=== PATIENT | male | born 1965 | race Caucasian/White ===

== ENCOUNTER 2020-04-13 10:56 | Emergency (ER) | payer MEDICAID, SELFPAY ==
[2020-04-13 10:57] VITALS: BP 133/76; PULSE 70; RESP 18; TEMP 36.8; O2SAT 100; BMI 34.7
--- NOTE | 2020-04-13 11:19 | ED.VIS.GEN ---
History of Present Illness Chief Complaint: Abd Pain Informant: Patient Narrative: 54-year-old male presenting with epigastric and right upper quadrant pain. This has been going on for about a week. Does not have a gallbladder but does state that he had a stent placed by Dr. Claire and his celiac artery in September of last year. He was concerned that this may be the problem. He states that his surgeon no longer takes his insurance and was directed to the emergency room. Patient has had slight decrease in bowel movements but not significant. Is making normal urine. He is able to eat and drink. He states that his pain is related to eating most of the time. She will get pain in the epigastrium and right upper quadrant for 20 minutes after eating. Prior similar symptoms: Yes Recent Illness/Hospitalization: Yes Past Medical History - Allergies and Home Meds Allergies/Adverse Reactions: Allergies latex Allergy (Verified 04/13/20 10:57) Rash Primary Care Physician: NOT,DEFINED [NON-STAFF] - Prior records reviewed: Yes Past Medical History: - - GERD Surgical History: - - Electrocautery stent Smoking Status: Current every day smoker Review of Systems General: Denies: Chills, Fever, Sweats Eyes: Denies: Visual changes - bilaterally, Diplopia ENT: Denies: Rhinorrhea, Sore throat Cardiovascular: Denies: Chest pain, Palpitations Respiratory: Denies: Dyspnea, Cough, Dyspnea on exertion Gastrointestinal: Reports: Abdominal pain, Nausea, Constipation. Denies: Vomiting, Diarrhea Genitourinary: Denies: Dysuria, Hematuria Musculoskeletal: Denies: Myalgias, Arthralgias Skin: Denies: Rash, Abscess Neurological: Denies: Headache, Weakness, Parasthesia Psych: Denies: Depression, Anxiety Physical Exam Vital Signs/Narrative: Vital Signs Temp Pulse Resp BP Pulse Ox 04/13/20 10:57 98.2 F 70 18 133/76 H 100 Inital Vital Signs reviewed: Yes General: Obese, No Acute Distress Head: Normocephalic, Atraumatic Eyes: Perrl, EOMI ENT: Moist mucous membranes, No rhinorrhea Cardiovascular: Regular rate, Regular rhythm Respiratory: No distress, CTA bilaterally Abdomen: Soft, Tender - Mild tenderness in the right upper quadrant. Negative Muñoz sign. Extremities: Nontender, No edema Skin: Normal color, No rash Neurological: Alert, Oriented x3, Cranial nerves II-XII grossly intact Psychological: Normal affect, Normal Mood Diagnostic/Tx/Re-eval Clinical Impression(s) from Imaging Studies Abdomen CTA 04/13/20 11:23 IMPRESSION: Vascular stent at the origin of the celiac artery. Diffuse fatty infiltration of the liver. Electronically Signed: Lisandro Case MD at 12:17 EST , Service support , Laboratory Data 04/13/20 04/13/20 11:17 11:17 WBC 8.9 RBC 5.63 Hgb 16.2 Hct 47.6 MCV 84.5 MCH 28.8 MCHC 34.0 RDW Std Deviation 42.1 RDW Coeff of Nadia 13.6 Plt Count 229 MPV 10.2 Immature Gran % (Auto) 0.300 Neut % (Auto) 33.9 L Lymph % (Auto) 49.7 H [place] % (Auto) 8.3 Eos % (Auto) 7.1 H Baso % (Auto) 0.7 Absolute Neuts (auto) 3.0 Absolute Lymphs (auto) 4.44 Nucleated RBC % 0 Sodium 137 Potassium 3.9 Chloride 108 H Carbon Dioxide 26.0 Anion Gap 3 L BUN 16 Creatinine 0.81 Estim Creat Clear Calc 98.61 Est GFR (MDRD) Af Amer 129 Est GFR (MDRD) Non-Af 106 BUN/Creatinine Ratio 19.9 Glucose 99 Calcium 8.8 Total Bilirubin 0.50 AST 42 H ALT 75 H Alkaline Phosphatase 65 Total Protein 7.6 Albumin 3.6 Globulin 4.0 Albumin/Globulin Ratio 0.9 Lipase 96 - Medical Decision Making 54-year-old male presenting with abdominal pain and has concerned that it could be is recently displaced stent in his celiac artery. Patient had blood work which was within normal limits. CTA of the abdomen and pelvis shows that stent is patent. There are no identified other abnormalities. Since patient is also having concern for light constipation he is counseled to start a stool softener. He is given return precautions. Patient stable for discharge. Impression: 1. Abdominal pain ED Disposition - Plan for ED Patient: Disposition: Home or Assisted Living Instructions: Abdominal Pain, ED Constipation (Adult) Referrals: NOT,DEFINED [NON-STAFF] -
--- NOTE | 2020-04-13 11:23 | CT_ITS ---
STUDY: CTA OF THE ABDOMINAL AORTA REASON FOR EXAM: Male, 54 years old. RUQ PAIN X 1 WEEK. STENT IN CELIAC SINCE 2019 RADIATION DOSAGE (If Supplied By Facility): CTDIvol = ( 31.63 ) mGy, DLP = ( 790.43 ) mGycm TECHNIQUE: Axial CT angiography multi-detector data acquisition was obtained from the dome of the liver to the iliac crests following intravenous administration of IV 100mL Isovue-370. Axial images and MIP images were reconstructed from the axial data set. Post-processing of the angiographic images was performed, with multiplanar reformation and 3D reconstruction. Individualized dose optimization techniques were used for this CT. TECHNICAL QUALITY: Good COMPARISON: None. Descriptors of Narrowing: None (0%) Mild (< 50%) Moderate (50-70%) Severe (70-90%) Subtotal/Total Occlusion (90-100%) Non-Evaluable (technically non-diagnostic FINDINGS: Mild increased markings at the right lung base suggestive of atelectasis. Diffuse fatty infiltration of the liver. Mild hepatomegaly. Status post cholecystectomy. Abdominal aorta: Minimal atherosclerotic plaque. Celiac and superior mesenteric arteries: A vascular stent is seen at the origin of the celiac artery. Inferior mesenteric artery: No demonstrated narrowing. Right renal artery(arteries): No demonstrated narrowing. Left renal artery(arteries): No demonstrated narrowing. Right common iliac artery: No demonstrated narrowing. Right external iliac artery: No demonstrated narrowing. Right internal iliac artery: No demonstrated narrowing. Left common iliac artery: No demonstrated narrowing. Left external iliac artery: No demonstrated narrowing. Left internal iliac artery: No demonstrated narrowing. CT/CTA Abdomen W/WO Contrast IMPRESSION: Vascular stent at the origin of the celiac artery. Diffuse fatty infiltration of the liver. Electronically Signed: Lisandro Case MD at 12:17 EST , Service support ,
[2020-04-13 11:39] LABS: Absolute Lymphocyte Count 4.44 X10^3/uL (0.83-4.51); Basophil# 0.06 X10^3/uL; Basophil% 0.7 % (0-1); Eosinophil# 0.63 X10^3/uL; Eosinophils% 7.1 % (0-5); Hematocrit 47.6 % (40-54); Hemoglobin 16.2 g/dL (13.0-16.5); Lymphocyte # 4.44 X10^3/ul (4.0); Lymphocyte % 49.7 % (19-41); Mean Corpuscular Hgb 28.8 pg (27.0-32.0); Mean Corpuscular Volume 84.5 fL (80-94); Mean Platelet Vol. 10.2 fl (6.2-12.0); Monocyte# 0.74 X10^3/uL; Monocyte% 8.3 % (0-10); NRBC Flagged by Analyzer 0 % (0-5); Neutrophil # 3.03 X10^3/uL (2.7-7.7); Neutrophil % 33.9 % (47-70); Platelet Count 229 K/mm3 (150-450); RBC Distribution Width CV 13.6 % (11.6-14.6); RBC Distribution Width SD 42.1 fl (35.1-43.9); Red Blood Count 5.63 M/mm3 (4.6-6.2); White Blood Count 8.9 K/mm3 (4.4-11.0)
[2020-04-13 11:50] LABS: ALB/GLOB Ratio 0.9 RATIO (0.9-2.4); AST(SGOT) 42 U/L (15-37); Alanine Aminotransfer ALT/SGPT 75 U/L (16-61); Albumin, Serum 3.6 g/dL (3.2-5.0); Alkaline Phosphatase 65 U/L (45-117); Anion Gap 3 (5-15); BUN 16 mg/dL (7-18); BUN/Creat Ratio 19.9 RATIO (10-20); Calcium,Total 8.8 mg/dL (8.5-10.1); Chloride 108 mmol/L (98-107); Creatinine, Serum 0.81 mg/dL (0.70-1.30); EST Glomerular Filtration Rate 106 mL/min (>60); Est Glom Filt Rate - Afr Amer 129 mL/min (>60); Estimated Creatinine Clearance 98.61 ml/min; Glucose 99 mg/dL (74-106); Lipase 96 U/L (73-393); Potassium 3.9 mmol/L (3.5-5.1); Protein, Total 7.6 g/dL (6.4-8.2); Sodium Level 137 mmol/L (136-145)
== END 2020-04-13 13:25 | disposition home or self-care (01) ==
PROVIDERS: Emergency Provider Student in an Organized Health Care Education/Training Program; PCP Family Medicine
DX: R10.11 Right upper quadrant pain (principal); F17.200 Nicotine dependence, unspecified, uncomplicated; Z79.82 Long term (current) use of aspirin
CPT/HCPCS: 74175; 80053; 83690; 85025; 99283; J7040; Q9967; A4216

== ENCOUNTER 2022-04-24 22:53 | Emergency (ER) | payer MEDICAID, SELFPAY ==
[2022-04-24 22:54] VITALS: BP 139/71; PULSE 64; RESP 15; TEMP 36.3; O2SAT 96; BMI 32.8
--- NOTE | 2022-04-24 23:13 | RAD_ITS ---
STUDY: X-RAY - UNILATERAL RIBS ( RIGHT ) WITH CHEST REASON FOR EXAM: Male, 56 years old. pain TECHNIQUE - RIBS: 4 view(s) of the ribs. TECHNIQUE - CHEST: Single frontal view of the chest. COMPARISON: June 25, 2012 FINDINGS - RIBS: Fractures of the fourth and fifth ribs posteriorly on the right. FINDINGS - CHEST: Right hilar sutures. Bilateral interstitial infiltrates. No pneumothorax. Small right effusion. Normal size heart. Normal mediastinum and brina. Normal visualized pulmonary arteries. Normal visualized aortic arch and descending thoracic aorta. Normal visualized thoracic spine. Normal visualized ribs, clavicles, and shoulders. There is no demonstrated abnormality of the visualized soft tissue structures of the upper abdomen. RAD/Ribs Uni Min 3V w/PA Chest IMPRESSION: RIBS: Fourth and fifth rib fractures on the right posteriorly. CHEST: No pneumothorax. Right lower lobe infiltrate and small effusion. Electronically Signed: Tyler Raya MD at 23:51 EST ,
--- NOTE | 2022-04-24 23:13 | EX.ED.DYSGE1 ---
HPI History of Present Illness Chief Complaint: Other, Pain/Inj Detail of Chief Complaint: Chest wall pain Informant: patient Onset/Context/Timing Onset: Days (2 days) Context: Gradual Onset Timing: Waxes and wanes Current Severity: Moderate Maximum Severity: Moderate Narrative Narrative: Patient presents secondary to right-sided chest wall pain. 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 Patient states 2 days ago he was coughing and sneezed hard and now has pain to the right ribs. He does not feel short of breath. He states he had a few leftover oxycodone that were helping initially, but he ran out 2 nights ago. He tried taking Tylenol without significant improvement. [facility] Medical History HTN (hypertension) Hyperlipidemia Home Medications aspirin 81 mg chewable tablet 81 mg PO DAILY@0800 04/13/20 [History Last Taken Unknown] clopidogrel 75 mg tablet 75 mg PO DAILY 04/13/20 [History Last Taken Unknown] fenofibrate nanocrystallized 145 mg tablet 145 mg PO DAILY 04/13/20 [History Last Taken Unknown] lisinopril 10 mg-hydrochlorothiazide 12.5 mg tablet 1 ea PO DAILY 04/13/20 [History Last Taken Unknown] metoprolol tartrate 25 mg tablet 25 mg PO DAILY 04/13/20 [History Last Taken Unknown] rosuvastatin 10 mg tablet 10 mg PO QHS 04/13/20 [History Last Taken Unknown] oxycodone 5 mg tablet 5 mg PO Q8H PRN pain 3 days #12 tabs 04/24/22 [Rx Last Taken Unknown] Allergy/AdvReac Type Severity Reaction Status Date / Time latex Allergy Rash Verified 04/24/22 22:58 adhesive tape AdvReac Rash Verified 04/24/22 22:58 esomeprazole [From Nexium] AdvReac Rash Verified 04/24/22 22:58 Surgical History S/P partial lobectomy of lung Social History Smoking Status: Current every day smoker tobacco type: cigarettes ROS ROS ED Constitutional Constitutional ED: Denies chills or fever(s) Eyes Eyes: Denies change in vision or discharge from eye(s) ENT ENT ED: Denies discharge from eye(s), rhinorrhea or sore throat Cardiovascular Cardiovascular: Reports chest pain; Denies palpitations Respiratory/Chest Respiratory/Chest: Denies cough or dyspnea Gastrointestinal Gastrointestinal: Denies abdominal pain, nausea or vomiting Genitourinary Genitourinary ED: Denies dysuria Musculoskeletal Musculoskeletal: Denies back pain or extremity pain Integumentary Denies Abrasions or rash Neurologic Neurologic: Denies headache(s) or weakness Allergic/Immunologic Allergic/Immunologic ED: Denies lip swelling or urticaria EXAM Physical Exam Const Vital Signs: 04/24/22 22:54 04/24/22 23:07 04/24/22 23:46 Temperature 97.4 F L Temperature Source Temporal Pulse Rate 64 45 L Respiratory Rate 15 16 Respiratory Effort Normal Non-Labored Respiratory Pattern Normal Blood Pressure 139/71 H 122/56 H Blood Pressure Mean 93 78 Pulse Ox 96 97 Oxygen Delivery Method Room Air Room Air Positive well nourished and well developed General Appearance ED: well developed HEENT Reports normocephalic and head/scalp atraumatic Eyes PERRL and EOMs intact bilaterally Neck supple Chest Wall Chest Narrative: Healed scars to the right lateral chest wall. Reproducible tenderness along the anterior lateral chest wall. No overlying skin changes. No crepitus. Resp normal respiratory effort and clear to auscultation bilaterally Cardio regular rate and regular rhythm GI normal to inspection, nondistended, normoactive bowel sounds Palpation: soft Extremity normal to inspection Neuro oriented x3 and no sensory deficits noted Sensorium / Orientation: alert Motor Exam: strength 5/5 throughout Psych mental status grossly normal Skin no rashes or lesions noted MDM MDM MDM Narrative Medical decision making narrative: Patient is given a dose of oxycodone for pain control. Rib series with chest x-ray obtained to evaluate for lung and rib pathology. Radiography Diagnostic Testing: Clinical Impression(s) from Imaging Studies Ribs w/Chest X-Ray 04/24/22 23:13 IMPRESSION: RIBS: Fourth and fifth rib fractures on the right posteriorly. CHEST: No pneumothorax. Right lower lobe infiltrate and small effusion. Electronically Signed: Tyler Raya MD at 23:51 EST Reading Location ID and State: [facility] / [place] , Service support , Treatment and Re-Evaluation Narrative: Rib series with chest x-ray per my interpretation shows some postoperative right-sided rib fractures and postoperative changes in the right lung. Radiology interpretation is reviewed. They feel he may have an infiltrate and small effusion on the right. Patient has had no significant cough or fever. He has reproducible chest wall pain. Nursing staff did note that the patient's heart rate would drop down into the 30s periodically. He appears to be sinus bradycardia. I spoke with him about this. He states he recently had a stress test and at that time they noted his heart rate would drop as low as 29. I was able to review records and [facility] and he did have a nuclear stress test on March 26 of this year. There is no evidence of inducible ischemia. His maximum heart rate during his stress test was only 67. Patient is asymptomatic with this and will follow-up with his primary care physician. I will write him a short course of oxycodone to help control his chest wall pain. Return instructions are given. Discharge Plan Triage Chief Complaint: Other, Pain/Inj ED Provider: Yady Wasserman Dx/Rx/DC Orders Clinical Impression: Chest wall pain Instructions: ED Chest Pain, Noncardiac Prescriptions: New oxycodone 5 mg tablet 5 mg PO Q8H PRN (Reason: pain) 3 Days Qty: 12 0RF No Action clopidogrel 75 MG tablet 75 mg PO DAILY aspirin 81 MG tablet,chewable 81 mg PO DAILY@0800 lisinopril-hydrochlorothiazide 1 EACH tablet 1 ea PO DAILY rosuvastatin 10 MG tablet 10 mg PO QHS metoprolol tartrate 25 MG tablet 25 mg PO DAILY fenofibrate nanocrystallized 145 MG tablet 145 mg PO DAILY Primary Care Provider: Care Physician,No Primary Referrals: Sabrina Doss MD [Med Staff - Retail Analytics Manager] - 1-2 Weeks Care Physician,No Primary [Primary Care Provider] - Disposition Disposition: Home, Self Care
[2022-04-24] MEDS: oxyCODONE 5 MG Tablet PO (23:28)
[2022-04-24 23:46] VITALS: BP 122/56; PULSE 45; RESP 16; O2SAT 97
[2022-04-25 00:04] VITALS: BP 130/68; PULSE 57; RESP 13; O2SAT 97
== END 2022-04-25 00:13 | disposition home or self-care (01) ==
PROVIDERS: Emergency Provider Emergency Medicine; Visit Provider Emergency Medicine
DX: R07.89 Other chest pain (principal); F17.210 Nicotine dependence, cigarettes, uncomplicated
CPT/HCPCS: 71101; 99282

== ENCOUNTER 2022-05-18 06:38 | Emergency (ER) | payer MEDICAID, SELFPAY ==
[2022-05-18 06:39] VITALS: BP 151/77; PULSE 67; RESP 18; TEMP 36.4; O2SAT 95; BMI 33.1
--- NOTE | 2022-05-18 07:06 | EDS_ITS ---
HPI History of Present Illness Chief Complaint: Cough Detail of Chief Complaint: Cough Narrative Narrative: Patient presents to the emergency department with complaint of a cough that started initially 2 weeks ago. Patient also complains of some right chest disco mfort. Patient complains of some productive sputum that is white and chunky at times. He has had no fever. He denies sick contacts. Patient tells me he had a partial lobectomy in March of this year to remove 2 nodules. He denies recent travel. No history of PE or DVT. He does describe some mild exertional dyspnea. Patient has not had the COVID-vaccine. Patient states that he was seen in the emergency department about a month ago for right-sided chest pain due to his surgery and his ribs being cut. [facility] Medical History HTN (hypertension) Hyperlipidemia Home Medications aspirin 81 mg chewable tablet 81 mg PO DAILY@0800 04/13/20 [History Last Taken Unknown] clopidogrel 75 mg tablet 75 mg PO DAILY 04/13/20 [History Last Taken Unknown] fenofibrate nanocrystallized 145 mg tablet 145 mg PO DAILY 04/13/20 [History Last Taken Unknown] lisinopril 10 mg-hydrochlorothiazide 12.5 mg tablet 1 ea PO DAILY 04/13/20 [History Last Taken Unknown] metoprolol tartrate 25 mg tablet 25 mg PO DAILY 04/13/20 [History Last Taken Unknown] rosuvastatin 10 mg tablet 10 mg PO QHS 04/13/20 [History Last Taken Unknown] oxycodone 5 mg tablet 5 mg PO Q8H PRN pain 3 days #12 tabs 04/24/22 [Rx Last Taken Unknown] benzonatate 200 mg capsule 200 mg PO TID PRN cough #20 caps 05/18/22 [Rx Last Taken Unknown] doxycycline monohydrate 100 mg capsule 100 mg PO BID #20 CAPSULES 05/18/22 [Rx Last Taken Unknown] Allergy/AdvReac Type Severity Reaction Status Date / Time latex Allergy Rash Verified 05/18/22 06:43 adhesive tape AdvReac Rash Verified 05/18/22 06:43 esomeprazole [From Nexium] AdvReac Rash Verified 05/18/22 06:43 Surgical History S/P partial lobectomy of lung Social History Smoking Status: Current every day smoker tobacco type: cigarettes ROS ROS ED Review of Systems ROS Unobtainable: other Constitutional Constitutional ED: Reports lethargy; Denies chills, fever(s), sweats or weight loss Eyes Eyes: Denies blurry vision, change in vision or diplopia ENT ENT ED: Denies rhinorrhea or sore throat Cardiovascular Cardiovascular: Reports chest pain and racing heartbeat; Denies orthopnea Respiratory/Chest Respiratory/Chest: Reports cough, dyspnea and dyspnea on exertion; Denies orthopnea or sputum Gastrointestinal Gastrointestinal: Denies abdominal pain, diarrhea, nausea or vomiting Genitourinary Genitourinary ED: Denies dysuria, hematuria or urinary frequency Musculoskeletal Musculoskeletal: Denies arthralgias, back pain, myalgias or neck pain Integumentary Denies abscess, Abrasions or rash Neurologic Neurologic: Denies headache(s) or weakness Psychiatric Psychiatric: Denies anxiety, depression or suicidal thoughts Endocrine Endocrinology: Denies polydipsia, polyphagia or polyuria Hematologic/Lymphatic Hematologic/Lymphatic: Denies easy bleeding, easy bruising or lymphadenopathy Allergic/Immunologic Allergic/Immunologic ED: Denies mouth swelling, tongue swelling or urticaria EXAM Physical Exam Const Vital Signs: 05/18/22 06:39 05/18/22 06:39 05/18/22 06:39 Temperature 97.6 F L 97.6 F L Temperature Source Oral Oral Pulse Rate 67 67 Respiratory Rate 18 18 Respiratory Effort Normal Respiratory Depth Normal Respiratory Pattern Normal Blood Pressure 151/77 H 151/77 H Blood Pressure Mean 101 101 Pulse Ox 95 95 Oxygen Delivery Method Room Air Room Air Room Air 05/18/22 09:15 05/18/22 09:15 Temperature Temperature Source Pulse Rate 65 Respiratory Rate 16 Respiratory Effort Respiratory Depth Respiratory Pattern Blood Pressure Blood Pressure Mean Pulse Ox 96 Oxygen Delivery Method Room Air Positive well nourished and well developed General Appearance ED: well developed and NAD HEENT Reports TM's clear and moist mucous membranes normocephalic and atraumatic; Negative for trauma or tenderness Tympanic Membrane ED: Yes TM's clear Eyes PERRL and EOMs intact bilaterally General Eye ED: Negative for pale conjunctiva or scleral icterus Neck no lymphadenopathy, supple and no JVD General: Negative for tenderness Chest Wall inspection of chest normal and palpation of chest normal Chest: Negative for tenderness Resp normal respiratory effort and clear to auscultation bilaterally Effort and Inspection: Negative for respiratory distress or pain with movement Auscultation: Negative for rhonchi, wheezes or diminished lung sounds Cardio regular rate, regular rhythm, S1 normal heart sound, S2 normal heart sound and no murmurs Peripheral Pulses: pulses 2+ throughout GI normal to inspection, nondistended, normoactive bowel sounds, soft to palpation, non-tender, non-distended and no masses Back/Spine no CVA tenderness and no thoracic nor lumbar tenderness Extremity normal to inspection General Extremety ED: Negative for edema General Extremity: Negative for edema Neuro oriented x3, CN's II-XII intact bilaterally, no sensory deficits noted and gait normal Sensorium / Orientation: awake, alert, oriented to person, oriented to place and oriented to time Motor Exam: strength 5/5 throughout and strength abnormal Psych mental status grossly normal Skin no rashes or lesions noted and no wounds MDM MDM MDM Narrative Medical decision making narrative: IV line sepsis on arrival. Patient had a CBC with differential that showed a normal white count and normal H&H. Chemistries were unremarkable. D-dimer was elevated at 0.55. CTA of the chest obtained was negative for PE or dissection. Patient had postsurgical changes noted in the right lung with some mild bilateral increased markings which may be inflammatory or infiltrate. Given the patient's had continued cough for 2 weeks we will cover with doxycycline. Patient has an appointment with his surgeon in 5 days. Patient also will be given a prescription for Tessalon Perles. Lab Data Attestation: I reviewed the patient's lab results. Labs: Laboratory Results - last 24 hr 05/18/22 05/18/22 05/18/22 07:47 07:47 07:47 WBC 10.1 RBC 5.35 Hgb 15.2 Hct 45.9 MCV 85.8 MCH 28.4 MCHC 33.1 RDW Std Deviation 41.1 RDW Coeff of Nadia 13.2 Plt Count 335 MPV 10.1 Immature Gran % (Auto) 0.400 Neut % (Auto) 48.8 Lymph % (Auto) 36.1 [place] % (Auto) 8.8 Eos % (Auto) 5.3 H Baso % (Auto) 0.6 Absolute Neuts (auto) 5.0 Absolute Lymphs (auto) 3.66 Nucleated RBC % 0 D-Dimer Quant (PE/DVT) 0.55 H* Sodium 138 Potassium 4.0 Chloride 105 Carbon Dioxide 28.0 Anion Gap 5 BUN 16 Creatinine 0.84 Estim Creat Clear Calc 92.90 Est GFR (MDRD) Af Amer 122 Est GFR (MDRD) Non-Af 100 BUN/Creatinine Ratio 19.0 Glucose 124 H Calcium 9.8 Radiography Diagnostic Testing: Clinical Impression(s) from Imaging Studies Chest CTA 05/18/22 08:29 IMPRESSION: CTA chest examination, without a demonstrated pulmonary embolism or arterial dissection. Postoperative change. Bilateral interstitial edema or infiltrates. Electronically Signed: Bob Kendall MD at 9:49 EST , Differential Diagnosis Chest pain/SOB: pulmonary embolism, pneumothorax, pneumonia and COPD Treatment and Re-Evaluation :: Patient received a DuoNeb aerosol however clinically he did not feel any different. There was no significant wheezing afterwards. Discharge Plan Triage Chief Complaint: Cough ED Provider: Roni Hanna Dx/Rx/DC Orders Clinical Impression: Acute upper respiratory infection, Dyspnea Instructions: ED Upper Resp Infec Abx Tx, ED Dyspnea Prescriptions: New doxycycline monohydrate 100 mg capsule 100 mg PO BID Qty: 20 0RF benzonatate 200 mg capsule 200 mg PO TID PRN (Reason: cough) Qty: 20 0RF No Action clopidogrel 75 MG tablet 75 mg PO DAILY aspirin 81 MG tablet,chewable 81 mg PO DAILY@0800 lisinopril-hydrochlorothiazide 1 EACH tablet 1 ea PO DAILY rosuvastatin 10 MG tablet 10 mg PO QHS metoprolol tartrate 25 MG tablet 25 mg PO DAILY fenofibrate nanocrystallized 145 MG tablet 145 mg PO DAILY oxycodone 5 mg tablet 5 mg PO Q8H PRN (Reason: pain) 3 Days Qty: 12 0RF Primary Care Provider: ROC ANDERSON Referrals: ROC ANDERSON [Other] Activity Restrictions/Additional Instructions: Keep your ointment with surgeon in 5 days. Disposition Disposition: Home, Self Care
[2022-05-18 08:02] LABS: Absolute Lymphocyte Count 3.66 X10^3/uL (0.83-4.51); Basophil# 0.06 X10^3/uL; Basophil% 0.6 % (0-1); Eosinophil# 0.54 X10^3/uL; Eosinophils% 5.3 % (0-5); Hematocrit 45.9 % (40-54); Hemoglobin 15.2 g/dL (13.0-16.5); Lymphocyte # 3.66 X10^3/ul (0.83-4.51); Lymphocyte % 36.1 % (19-41); Mean Corp Hgb Conc 33.1 g/dL (32-36); Mean Corpuscular Hgb 28.4 pg (27.0-32.0); Mean Corpuscular Volume 85.8 fL (80-94); Mean Platelet Vol. 10.1 fl (6.2-12.0); Monocyte# 0.89 X10^3/uL; Monocyte% 8.8 % (0-10); NRBC Flagged by Analyzer 0 % (0-5); Neutrophil # 4.95 X10^3/uL (2.7-7.7); Neutrophil % 48.8 % (47-70); Platelet Count 335 K/mm3 (150-450); RBC Distribution Width CV 13.2 % (11.6-14.6); RBC Distribution Width SD 41.1 fl (35.1-43.9); Red Blood Count 5.35 M/mm3 (4.6-6.2); White Blood Count 10.1 K/mm3 (4.4-11.0)
[2022-05-18 08:25] LABS: D-Dimer Quantitative (DVT/PE) 0.55 FEU/ug/m (0.27-0.49)
--- NOTE | 2022-05-18 08:29 | CT_ITS ---
STUDY: CTA CHEST REASON FOR EXAM: Male, 56 years old. Chest pain, elevated d-dimer, cough x 2 weeks RADIATION DOSAGE (If Supplied By Facility): CTDIvol = ( 13.15 ) mGy, DLP = ( 474.68 ) mGycm TECHNIQUE: The examination was performed with the intravenous administration of IV 100mL Isovue-370. Post-processing of the angiographic images was performed, with multiplanar reformation and 3D reconstruction. Individualized dose optimization techniques were used for this CT. COMPARISON: Chest x-ray April 24, 2022 FINDINGS: Normal enhancement of the main pulmonary artery and right and left pulmonary arteries. Normal enhancement of the bilateral peripheral pulmonary arteries. There is no demonstrated pulmonary embolism. There is atherosclerotic calcification of the aortic arch. There is no demonstrated aortic dissection. Normal heart and pericardium. Normal mediastinum. Normal hilar regions. Normal visualized trachea and bronchi. The lungs are well expanded. There is postoperative change in the right midlung and hilar regions. There is adjacent scarring and architectural distortion. There are mild to moderate interstitial septal and groundglass increased opacities of the lungs. Normal pleura. Normal chest wall structures. There are degenerative changes of thoracic spine. There is postoperative change of the right posterior fifth rib. There are cholecystectomy clips. There is stent in the origin of the celiac artery. CT/CTA Chest W/WO Contrast IMPRESSION: CTA chest examination, without a demonstrated pulmonary embolism or arterial dissection. Postoperative change. Bilateral interstitial edema or infiltrates. Electronically Signed: Bob Kendall MD at 9:49 EST ,
[2022-05-18 08:40] LABS: Anion Gap 5 (5-15); BUN 16 mg/dL (7-18); Calcium,Total 9.8 mg/dL (8.5-10.1); Chloride 105 mmol/L (98-107); Creatinine, Serum 0.84 mg/dL (0.70-1.30); EST Glomerular Filtration Rate 100 mL/min (>60); Est Glom Filt Rate - Afr Amer 122 mL/min (>60); Glucose 124 mg/dL (74-106); Sodium Level 138 mmol/L (136-145)
[2022-05-18] MEDS: Ipratropium/Albuterol Sulfate 3 ML AMPUL.NEB INHALATION (09:14)
[2022-05-18 09:15] VITALS: PULSE 65; RESP 16; O2SAT 96
[2022-05-18] MEDS: Doxycycline 100 MG CAPSULE PO (10:52)
== END 2022-05-18 10:57 | disposition home or self-care (01) ==
PROVIDERS: Emergency Provider Emergency Medicine; Visit Provider Emergency Medicine
DX: J06.9 Acute upper respiratory infection, unspecified (principal); R06.00 Dyspnea, unspecified; F17.210 Nicotine dependence, cigarettes, uncomplicated
CPT/HCPCS: 71275; 80048; 85025; 85379; 94640; 99283; Q9967; A4216

== ENCOUNTER 2022-10-13 17:46 | Emergency (ER) | payer MEDICAID, SELFPAY ==
[2022-10-13 17:48] VITALS: BP 150/82; PULSE 79; RESP 20; TEMP 36.6; O2SAT 91; BMI 34.4
--- NOTE | 2022-10-13 17:54 | EDS_ITS ---
HPI History of Present Illness Chief Complaint: Shortness of Breath PFSH FOR[facility], 1928–1983 Medical History HTN (hypertension) Hyperlipidemia
--- NOTE | 2022-10-13 17:54 | ED.VIS.DYS ---
HPI History of Present Illness Chief Complaint: Shortness of Breath [facility] Medical History HTN (hypertension) Hyperlipidemia Home Medications aspirin 81 mg chewable tablet 81 mg PO DAILY@0800 04/13/20 [History Last Taken Unknown] clopidogrel 75 mg tablet 75 mg PO DAILY 04/13/20 [History Last Taken Unknown] fenofibrate nanocrystallized 145 mg tablet 145 mg PO DAILY 04/13/20 [History Last Taken Unknown] lisinopril 10 mg-hydrochlorothiazide 12.5 mg tablet 1 ea PO DAILY 04/13/20 [History Last Taken Unknown] metoprolol tartrate 25 mg tablet 25 mg PO DAILY 04/13/20 [History Last Taken Unknown] benzonatate 200 mg capsule 200 mg PO TID PRN cough #20 caps 05/18/22 [Rx Last Taken Unknown] amoxicillin 875 mg-potassium clavulanate 125 mg tablet 1 tab PO BID #14 tabs 10/13/22 [Rx Last Taken Unknown] Allergy/AdvReac Type Severity Reaction Status Date / Time latex Allergy Rash Verified 05/18/22 06:43 adhesive tape AdvReac Rash Verified 05/18/22 06:43 esomeprazole [From Nexium] AdvReac Rash Verified 05/18/22 06:43 Surgical History S/P partial lobectomy of lung Social History Smoking Status: Current every day smoker tobacco type: cigarettes EXAM Physical Exam Const Vital Signs: 10/13/22 17:48 10/13/22 18:01 10/13/22 18:58 Temperature 97.8 F Temperature Source Temporal Pulse Rate 79 73 Respiratory Rate 20 H 12 Respiratory Effort Short of Breath Respiratory Depth Normal Respiratory Pattern Normal Normal Blood Pressure 150/82 H Blood Pressure Mean 104 Pulse Ox 91 Oxygen Delivery Method Room Air 10/13/22 19:00 10/13/22 19:39 Temperature 98.4 F Temperature Source Pulse Rate 73 71 Respiratory Rate 13 16 Respiratory Effort Respiratory Depth Respiratory Pattern Blood Pressure 105/61 Blood Pressure Mean Pulse Ox 92 92 Oxygen Delivery Method Room Air MDM MDM MDM Narrative Medical decision making narrative: HISTORY OF PRESENT ILLNESS: 57-year-old male with shortness of breath that started today. Notes cough that is nonproductive. States is a deep cough. Denies any sick contacts. He is not vaccinated against COVID or flu. Denies any leg swelling. Denies any bleeding diathesis. No vomiting. No chest pain. The patient denies recent surgery in the last 4 weeks or immobilization in the last 3 days, denies previous diagnosis of DVT or PE, hemoptysis, unilateral leg swelling or malignancy with treatment the last 6 months. No estrogen use noted. REVIEW OF SYSTEMS: Pertinent positives: [Shortness of breath, cough Pertinent negatives: Chest pain, syncope, bleeding diathesis. PHYSICAL EXAM: Nursing triage notes reviewed, Vital signs reviewed Constitutional: please see mdm HENT: MMM Eyes: Pupils equal round and reactive to light, Extraocular muscles intact Neck: No stridor, no JVD, full neck ROM Lungs: Clear to auscultation, scar noted to right posterior rib margin. There is some slight asymmetry in auscultation between left and right lung with some wheezing or rales on the right lung this may be secondary to pneumonia or secondary to prior lobectomy. Heart: Regular rate and rhythm, No murmurs, No rubs and No gallops, 2+ distal pulses (radial, femoral, posterior tibial) in all extremities Abdomen: Soft, there is no tenderness, rigidity, rebound or guarding, no obvious peritoneal signs, no palpable pulsatile abdominal masses, no auscultated abdominal bruit : No CVAT Extremities: No edema Neuro: No focal neurological deficits, cranial nerves II through XII intact, 5/5 strength in all extremities. Intact sensation to light touch in all extremities, 2+ reflexes bilateral patella tendons. Normal gait. No ataxia. Skin: No rash or lesions noted MEDICAL DECISION MAKING: Chief Complaint: Shortness of breath, cough External records reviewed: Seen in May 2022 for acute upper respiratory infection Factors affecting care: Status post right middle lobe lobectomy, history of lung cancer, Hypertension, hyperlipidemia Social determinants of health: Current smoker History obtained from others: The patient's ] Consults: none ALL IMAGES (IF OBTAINED) HAVE BEEN PERSONALLY REVIEWED AND INTERPRETED BY MYSELF. EKG with normal sinus rhythm, normal axis, normal intervals, no STEMI [facility] Narrative: 57-year-old male here with cough shortness of breath. He was initially hypoxic with ambulation, he is otherwise hemodynamically stable and afebrile. I considered the following differential diagnosis: Pneumonia, COVID, anemia, electrolyte disturbance, ACS, arrhythmia, PE I considered pulmonary was not given history of cancer or the patient not actively on chemo as a low risk Wells score and as such I do not pursue further testing at this time. His risk of pulm embolism is 1.3% and an ED population. I obtained a broad lab and imaging work-up to further elucidate etiology and rule out the after mentioned differential diagnoses. Labs images were remarkable for no evidence of myocardial ischemia, heart failure, significant anemia. EKG without evidence of arrhythmia or STEMI. COVID and flu test were negative. X-ray showed evidence of intensely increased markings, consolidation in the right lobe. This may be secondary to the patient's history of lobectomy. Given patient's amatory hypoxia did offer admission. He refused admission at this time. He is alert and oriented x3 and had capacity to make his own medical decisions. Patient was discharged on oral antibiotics given concern for clinical pneumonia. The patient and/or family, caregivers express understanding. The patient and/or family, caregivers agrees with the plan. Shared decision making: I will have a discussion with the patient and or visitors regarding risk/benefits of further testing or admission. They will be made aware of of the risk/benefits inherent in this decision they will be given the opportunity to voice understanding. Total critical care time today provided was at least 0 minutes. This excludes separately billable procedures. Critical care time (if documented) is secondary to the patient having high probability of clinically significant/life threatening deterioration in the patient's condition which required my urgent intervention. Lab Data Attestation: I reviewed the patient's lab results. Lab results narrative: CBC with leukocytosis suggestive of systemic formation, no anemia, no thrombocytopenia BMP with mild hypokalemia, no significant [place] normalities, no BRYAN Troponin is negative, no evidence of myocardial ischemia BNP within normal limits suggestive with normal outside stretch Labs: Laboratory Results - last 24 hr 10/13/22 18:18 WBC 14.1 H RBC 5.51 Hgb 16.2 Hct 47.4 MCV 86.0 MCH 29.4 MCHC 34.2 RDW Std Deviation 44.4 H RDW Coeff of Nadia 14.1 Plt Count 254 MPV 10.1 Immature Gran % (Auto) 0.400 Neut % (Auto) 62.4 Lymph % (Auto) 26.6 [place] % (Auto) 6.6 Eos % (Auto) 3.6 Baso % (Auto) 0.4 Absolute Neuts (auto) 8.8 H Absolute Lymphs (auto) 3.74 Nucleated RBC % 0 Sodium 140 Potassium 3.4 L Chloride 109 H Carbon Dioxide 23.0 Anion Gap 8 BUN 14 Creatinine 0.84 Estim Creat Clear Calc 91.81 Est GFR (MDRD) Af Amer 121 Est GFR (MDRD) Non-Af 100 BUN/Creatinine Ratio 16.6 Glucose 105 Calcium 9.3 Troponin I High Sens 7 B-Natriuretic Peptide 27.9 Radiography Chest X-Ray - ED: Read by ED Physician Diagnostic Testing: Clinical Impression(s) from Imaging Studies Chest X-Ray 10/13/22 18:35 IMPRESSION: Normal x-ray examination of the chest. Electronically Signed: Rupert Thorne MD at 18:48 EDT , Chest x-ray by my read showed evidence of right-sided inflammatory changes that could be considered pneumonia in the right clinical context. Patient has a cough, short of breath and has elevated white blood cell count. Likely clinical pneumonia. Discharge Plan Triage Chief Complaint: Shortness of Breath ED Provider: Fabricio Ramesh Dx/Rx/DC Orders Clinical Impression: History of COPD, Cough, Leukocytosis, Hypoxia Instructions: ED COPD Flare, ED Pneumonia (Adult) Prescriptions: New amoxicillin-pot clavulanate 875-125 mg tablet 1 tab PO BID Qty: 14 0RF No Action clopidogrel 75 MG tablet 75 mg PO DAILY aspirin 81 MG tablet,chewable 81 mg PO DAILY@0800 lisinopril-hydrochlorothiazide 1 EACH tablet 1 ea PO DAILY metoprolol tartrate 25 MG tablet 25 mg PO DAILY fenofibrate nanocrystallized 145 MG tablet 145 mg PO DAILY benzonatate 200 mg capsule 200 mg PO TID PRN (Reason: cough) Qty: 20 0RF Primary Care Provider: ARCADIO ANDERSON Referrals: NOT,DEFINED [Non-Staff] - Activity Restrictions/Additional Instructions: Thank you for trusting us with your care today! Please take Tylenol (2 pills, 650 mg), ibuprofen (2 pills, 400 mg) every 6 hours as needed for pain and fever control. Please take antibiotics to course complete. Please return to the emergency department if your symptoms change or worsen. Specifically develop worsening shortness of breath, lose conscious, develop chest pain, feeling her heart racing, start coughing blood. Please follow with your primary care physician for further outpatient evaluation and management. Disposition Disposition: Home, Self Care Discharge Date/Time: 10/13/22 19:48
--- NOTE | 2022-10-13 17:56 | EKG12_ITS ---
Test Reason : Blood Pressure : / mmHG Vent. Rate : 072 BPM Atrial Rate : 072 BPM P-R Int : 200 ms QRS Dur : 102 ms QT Int : 406 ms P-R-T Axes : 053 009 026 degrees QTc Int : 444 ms Normal sinus rhythm Normal ECG Confirmed by RILEY CLEMENT, ELGIN ([id number]), editor farm journal WOLFGANG VERA ([id number]) on 10/17/2022 8:42:18 AM Referred By: Confirmed By:HORACIO LIN MD
[2022-10-13 18:02] VITALS: O2SAT 93
[2022-10-13 18:30] LABS: Absolute Lymphocyte Count 3.74 X10^3/uL (0.83-4.51); Absolute Neutrophil Count 8.8 X10^3/uL (2.0-7.7); Basophil# 0.05 X10^3/uL; Basophil% 0.4 % (0-1); Eosinophil# 0.51 X10^3/uL; Eosinophils% 3.6 % (0-5); Hematocrit 47.4 % (40-54); Hemoglobin 16.2 g/dL (13.0-16.5); Lymphocyte # 3.74 X10^3/ul (0.83-4.51); Lymphocyte % 26.6 % (19-41); Mean Corp Hgb Conc 34.2 g/dL (32-36); Mean Corpuscular Hgb 29.4 pg (27.0-32.0); Mean Platelet Vol. 10.1 fl (6.2-12.0); Monocyte# 0.93 X10^3/uL; Monocyte% 6.6 % (0-10); NRBC Flagged by Analyzer 0 % (0-5); Neutrophil # 8.79 X10^3/uL (2.7-7.7); Neutrophil % 62.4 % (47-70); Platelet Count 254 K/mm3 (150-450); RBC Distribution Width CV 14.1 % (11.6-14.6); RBC Distribution Width SD 44.4 fl (35.1-43.9); Red Blood Count 5.51 M/mm3 (4.6-6.2); White Blood Count 14.1 K/mm3 (4.4-11.0)
--- NOTE | 2022-10-13 18:35 | RAD_ITS ---
STUDY: X-RAY CHEST REASON FOR EXAM: Male, 57 years old. Shortness of breath, cough TECHNIQUE: PA and lateral views of the chest. COMPARISON: 04/24/2022 FINDINGS: The lungs are clear and expanded. There is no demonstrated pleural abnormality. Normal size heart. Normal mediastinum and brina. Normal visualized pulmonary arteries. Normal visualized aortic arch and descending thoracic aorta. Normal visualized thoracic spine. Normal visualized ribs, clavicles, and shoulders. There is no demonstrated abnormality of the visualized soft tissue structures of the upper abdomen. RAD/Chest PA and Lateral IMPRESSION: Normal x-ray examination of the chest. Electronically Signed: Rupert Thorne MD at 18:48 EDT ,
[2022-10-13 18:53] LABS: Anion Gap 8 (5-15); BUN 14 mg/dL (7-18); BUN/Creat Ratio 16.6 RATIO (10-20); Calcium,Total 9.3 mg/dL (8.5-10.1); Chloride 109 mmol/L (98-107); Creatinine, Serum 0.84 mg/dL (0.70-1.30); EST Glomerular Filtration Rate 100 mL/min (>60); Est Glom Filt Rate - Afr Amer 121 mL/min (>60); Estimated Creatinine Clearance 91.81 ml/min; Glucose 105 mg/dL (74-106); Potassium 3.4 mmol/L (3.5-5.1); Sodium Level 140 mmol/L (136-145); Troponin-I HS 7 pg/mL (3.0-78.0)
[2022-10-13] MEDS: Ipratropium/Albuterol Sulfate 3 ML AMPUL.NEB INHALATION (18:57)
[2022-10-13 18:58] VITALS: PULSE 73; RESP 12
[2022-10-13 19:00] VITALS: PULSE 73; RESP 13; O2SAT 92
[2022-10-13 19:04] LABS: BNP,B-Type NATRIURETIC PEPTIDE 27.9 pg/mL (0-100)
[2022-10-13] MEDS: Amox/Clavulanate 875 MG Tablet PO (19:38)
[2022-10-13 19:39] VITALS: BP 105/61; PULSE 71; RESP 16; TEMP 36.9; O2SAT 92
== END 2022-10-13 19:48 | disposition home or self-care (01) ==
PROVIDERS: Emergency Provider Emergency Medicine; Visit Provider Emergency Medicine
DX: R05.9 Cough, unspecified (principal); D72.829 Elevated white blood cell count, unspecified; R09.02 Hypoxemia; I10 Essential (primary) hypertension; F17.210 Nicotine dependence, cigarettes, uncomplicated; Z79.82 Long term (current) use of aspirin; Z79.899 Other long term (current) drug therapy
CPT/HCPCS: 71046; 80048; 83880; 84484; 85025; 87428; 93005; 94640; 99284; J7030; A4216